=== PATIENT | male | born 1975 | race Caucasian/White ===

== ENCOUNTER 2018-02-23 20:08 | Emergency (ER) | payer OTHER ==
[~2018-02-23] VITALS: Ht 172.7 cm; Wt 65.8 kg
[2018-02-23 20:15] VITALS: BP 138/86
--- NOTE | 2018-02-23 20:25 | NUR ---
BIB [facility] TO ER BED 10 C/O OD ON [place]. AA/O X4. 2 DOSES OF NARCAN GIVEN [employer]. FOUND ALOC WITH AGONAL BREATHING ON SCENE. CURRENTLY NO S/S OF SOB. SKIN PINK, WARM,DRY. MOVES ALL EXTREMITIES WELL. SELF TRANSFERED FROM [facility] TO HOSPITAL BED WITH STABLE GAIT. NAD. VSS. STABLE CONDITION. WILL CONTINUE TO MONITOR.
--- NOTE | 2018-02-23 20:51 | NUR ---
PT STABLE CONDITION. NAD. VSS. ATTMEPTED TO VERBALIZE RISKS AND BENEFITS. PT STATED, "I AM LEAVING." Addendum: 02/23/18 at 2052 by ARMANI PT SELF REMOVED IV.
== END 2018-02-23 20:54 | disposition left against medical advice (07) ==
LOC: EDBD 20:13 → ER 20:13
DX: T40.691A Poisoning by other narcotics, accidental (unintentional), initial encounter (principal); Z60.2 Problems related to living alone; Y92.89 Other specified places as the place of occurrence of the external cause
CPT/HCPCS: A4606; Z7610